=== PATIENT | male | born 1960 | race Two or more races ===

== ENCOUNTER 2025-03-10 13:49 | Emergency (ER) | payer SELFPAY ==
[~2025-03-10] VITALS: Ht 177.8 cm; Wt 75.0 kg
[2025-03-10 13:52] VITALS: O2SAT 97
[2025-03-10 14:37] VITALS: BP 119/70; PULSE 81; RESP 18; TEMP 37; O2SAT 100
[2025-03-10 14:57] LABS: BASOPHILS % 0.4 % (0.0-2.0); EOSINOPHILS % 3.1 % (0.0-5.0); HEMATOCRIT. 42.5 % (42.0-52.0); HEMOGLOBIN. 14.2 g/dL (14.0-18.0); LYMPHOCYTES % 31.2 % (20.0-50.0); MEAN PLATELET VOLUME 8.8 fl (7.4-10.4); MONOCYTES % 11.9 % (2.0-8.0); NEUTROPHILS % 53.4 % (40.0-76.0); PLATELET 261 x1000/uL (130-400); RED BLOOD CELL COUNT 4.48 mill/uL (4.7-6.1); RED CELL DISTRIBUTION WIDTH 12.7 % (11.6-14.6)
[2025-03-10 15:20] LABS: CREATININE 1.3 mg/dL (0.6-1.3); UREA NITROGEN BLOOD 10.0 mg/dL (9-23)
== END 2025-03-10 16:29 | disposition home or self-care (01) ==
LOC: ER 13:49
DX: R42 Dizziness and giddiness (principal); R51.9 Headache, unspecified; I10 Essential (primary) hypertension; J44.9 Chronic obstructive pulmonary disease, unspecified; E78.00 Pure hypercholesterolemia, unspecified
CPT/HCPCS: 36415; 80048; 85025; 93005; 99284